=== PATIENT | male | born 1960 | race Caucasian/White ===

== ENCOUNTER 2022-12-31 13:14 | Emergency (ER) | payer MEDICARE ==
[~2022-12-31] VITALS: Ht 165.1 cm; Wt 72.6 kg
[2022-12-31 13:25] VITALS: BP_SYST 122
[2022-12-31] MEDS ORDERED: HALOPERIDOL LACTATE 5 MG/ML VIAL IVP ONE (13:30)
[2022-12-31] MEDS ORDERED: MORPHINE 4 MG INJ. 4 MG/ML VIAL IVP ONE (13:45)
[2022-12-31] MEDS ORDERED: HALOPERIDOL LACTATE 5 MG/ML VIAL IM ONE (13:45)
--- NOTE | 2022-12-31 14:05 | NUR ---
ER at bedside examining patient.
[2022-12-31 15:01] LABS: BASOPHILS % (AUTO) 0.3 % (0.0-2.0); EOSINOPHILS # (AUTO) 0.1 K/uL (0.0-0.4); EOSINOPHILS % (AUTO) 0.7 % (0.0-4.0); HEMATOCRIT 38.6 % (36-54); HEMOGLOBIN 13.9 g/dL (14.0-18.0); LYMPHOCYTES # (AUTO) 0.8 K/uL (1.0-5.5); LYMPHOCYTES % (AUTO) 8.8 % (20.5-51.5); MEAN CORPUSCULAR HEMOGLOBIN 32 pg (27-31); MEAN CORPUSCULAR HGB CONC 36 % (32-36); MEAN CORPUSCULAR VOLUME 90 fL (79.0-98.0); MONOCYTES # (AUTO) 1.5 K/uL (0.0-1.0); MONOCYTES % (AUTO) 15.9 % (1.7-9.3); NEUTROPHILS # (AUTO) 6.8 K/uL (1.8-7.7); NEUTROPHILS % (AUTO) 74.3 % (40.0-70.0); PLATELET COUNT (AUTO) 213 K/uL (130-430); RED CELL DISTRIBUTION WIDTH 12.9 % (9.0-15.0); WHITE BLOOD COUNT (AUTO) 9.2 K/uL (4.8-10.8)
[2022-12-31 15:14] LABS: ANION GAP 6 (5-15); CALCIUM 8.8 mg/dL (8.4-11.0); CHLORIDE 105 mmol/L (98-107); GFR AFRICAN AMERICAN 177 mL/min (>90); GLUCOSE 111 mg/dL (70-99); UREA NITROGEN, BLOOD 19 mg/dL (8-21)
[2022-12-31 15:18] LABS: ALBUMIN 3.3 g/dL (3.4-4.8); ASPARTATE AMINOTRANSFERASE 32 U/L (10-37); TOTAL BILIRUBIN 1.1 mg/dL (0.0-1.0)
[2022-12-31 15:37] LABS: ALANINE AMINOTRANSFERASE 17 U/L (12-78)
--- NOTE | 2022-12-31 16:09 | NUR ---
DR. DELACRUZ, [place] [facility] DOC, CALLED BACK TO SPEAK TO DR. RODRIGUEZ REGARDING PT STATUS.
--- NOTE | 2022-12-31 16:13 | NUR ---
AUTH FOR [facility] TRANSFER: [id number]
--- NOTE | 2022-12-31 16:45 | NUR ---
Dr. RODRIGUEZ s/w Cathleen pts sister about transferring to [place].
[2022-12-31 16:46] LABS: INR 1.1 (0.80-1.20); PROTHROMBIN TIME 10.9 SECS (9.5-12.5)
--- NOTE | 2022-12-31 17:57 | NUR ---
PT RESTING COMFORTABLY IN BED. VSS
--- NOTE | 2022-12-31 19:33 | NUR ---
pt resting in bed in stable condition, appears to be in no acute didtress noted at this time
[2022-12-31 19:47] VITALS: BP_SYST 110
--- NOTE | 2022-12-31 19:59 | NUR ---
sbar to [facility] (rn) stone
--- NOTE | 2022-12-31 21:09 | NUR ---
[facility] TO [facility]
== END 2022-12-31 21:24 | disposition short-term general hospital (02) ==
LOC: SED 13:14
DX: S72.142A Displaced intertrochanteric fracture of left femur, initial encounter for closed fracture (principal); R77.0 Abnormality of albumin; R26.89 Other abnormalities of gait and mobility; G30.9 Alzheimer's disease, unspecified; Z79.899 Other long term (current) drug therapy; Z20.822 Contact with and (suspected) exposure to COVID-19; W01.0XXA Fall on same level from slipping, tripping and stumbling without subsequent striking against object, initial encounter; Y93.89 Activity, other specified; Y92.89 Other specified places as the place of occurrence of the external cause; Y99.8 Other external cause status
CPT/HCPCS: 99285; 96374; 70450; 87426; 80053; 85025; 85610; 85730; 87081; 84484; 36415; 93005; 73502; 76376; 96372; 72170; J1630; J2270